=== PATIENT | female | born 1995 | race Two or more races ===

== ENCOUNTER 2024-02-14 01:44 | Inpatient (IN) | payer MEDICAID ==
[2024-02-14] VITALS (21 sets, daily range): BP systolic 52–148; BP diastolic 50–84; PULSE 84–134; RESP 16–23; TEMP 97.7–99.3; O2SAT 95–98
[2024-02-14] MEDS ORDERED: OXYTOCIN 10UNIT/ML 1ML VIAL ONE (01:52)
[2024-02-14] MEDS ORDERED: METHYLERGONOVINE MALEATE 0.2 MG/ML AMP IM ONE (01:53)
[2024-02-14] MEDS ORDERED: LACT. RINGERS/OXYTOCIN 20UNITS 1,000 ML IV ONE (01:53)
[2024-02-14] MEDS: TRANEXAMIC ACID 1,000 MG in SODIUM CHL 0.9% 100 ML IV ONE ×2 (01:57→03:25)
[2024-02-14] MEDS: LACTATED RINGER'S 1,000 ML IV SCH (02:00)
[2024-02-14] MEDS: ONDANSETRON HCL 4 MG/2 ML VIAL ONE (02:03)
[2024-02-14] MEDS ORDERED: CARBOPROST TROMETHAMINE 250 MCG/1ML VIAL IM PRN (02:15)
[2024-02-14] MEDS ORDERED: WITCH HAZEL-GLYCERIN PAD TOP PRN (02:15)
[2024-02-14] MEDS ORDERED: LIDOCAINE 2%HCL (LOCAL ANESTH.) INJ 20ML MDV IJ PRN (02:15)
[2024-02-14] MEDS: OXYTOCIN 10UNIT/ML 1ML VIAL IM ONE (02:17)
[2024-02-14] MEDS: LACT. RINGERS/OXYTOCIN 20UNITS 1,000 ML IV ONE (02:19)
[2024-02-14] MEDS: miSOPROStol 100 mcg TAB SL PRN (02:21)
[2024-02-14] MEDS: ONDANSETRON HCL 4 MG/2 ML VIAL IV PRN (02:23)
[2024-02-14] MEDS: miSOPROStol 100 mcg TAB PR PRN (02:26)
[2024-02-14] MEDS: DIPHENOXYLATE W/ATROPINE 2.5 MG TAB ONE (02:35)
[2024-02-14] MEDS: CARBOPROST TROMETHAMINE 250 MCG/1ML VIAL IM ONE ×2 (02:36)
[2024-02-14 02:39] LABS: Urine Bacteria None Seen /hpf (None Seen)
[2024-02-14] MEDS: fentaNYL CITRATE 100 MCG/2 ML VL ONE (02:41)
[2024-02-14 02:54] LABS: Basophils # (auto) 0 10 ^3/uL (0-0.2); Basophils % (auto) 0.3 % (0.0-2.0); Eosinophils # (auto) 0 10 ^3/uL (0-0.8); Eosinophils % (auto) 0.2 % (0.0-7.0); Hematocrit 33.9 % (36.0-46.0); Hemoglobin 11.2 g/dL (12.2-16.2); Lymphocytes # (auto) 1.2 10 ^3/uL (0.4-5.4); Lymphocytes % (auto) 10.6 % (10.0-50.0); Mean Corpuscular Hemoglobin 30.4 pg (28.0-32.0); Mean Corpuscular Hgb Conc. 33.1 g/dL (32.0-36.0); Mean Corpuscular Volume 91.8 fL (80.0-100.0); Monocytes # (auto) 0.6 10 ^3/uL (0-1.3); Monocytes % (auto) 5.4 % (0.0-12.0); Neutrophils # (auto) 9.8 10 ^3/uL (1.6-8.6); Neutrophils % (auto) 83.5 % (37.0-80.0); Nucleated Red Blood Cells % 0.1 %; Red Blood Cells 3.69 10^6/uL (4.0-5.20); Red Cell Distribution Width 14.9 % (11.8-14.3); White Blood Cell 11.8 10^3/uL (4.4-10.8)
[2024-02-14 02:57] LABS: Amphetamine Screen, Urine Neg (NEGATIVE); Barbiturate Scree,Urine Neg (NEGATIVE); Benzodiazephine Screen, Urine Neg (NEGATIVE); Cannabinoid Screen, Urine Neg (NEGATIVE); Cocaine Screen, Urine Neg (NEGATIVE); Opiate Scree,Urine Neg (NEGATIVE); Phencyclidine Screen, Urine Neg (NEGATIVE)
[2024-02-14 03:00] LABS: Protein, Urine 218.1 mg/dL (0.0-11.9); Urine Blood 2+ /uL (Negative); Urine Clarity Clear (Clear); Urine Color Light-Yellow (Yellow); Urine Protein, UAD 2+ (Negative); Urine Specific Gravity 1.017 (1.001-1.035); Urine Urobilinogen Normal (Negative); Urine WBC 2 /hpf (0 - 5); Urine pH 6.5 (5.0-9.0)
[2024-02-14 03:03] LABS: Creatinine, Urine 117.67 mg/dL (30.0-125.0); Urine Protein/Creatinine Ratio 1.85
[2024-02-14 03:09] LABS: INR 1.01 (0.9-1.15); Partial Thromboplastin Time 26.5 SEC (24.5-34.5); Prothrombin Time 10.7 sec (9.3-11.8)
[2024-02-14] MEDS: CARBOPROST TROMETHAMINE 250 MCG/1ML VIAL IM PRN (03:09)
[2024-02-14 03:12] LABS: Albumin 3.4 g/dL (3.2-4.8); Alkaline Phosphatase 195 U/L (46-116); Anion Gap 10 (5-15); Aspartate Aminotransferase 12 U/L (13-40); BUN/Creatinine Ratio 10.8 (10.0-20.0); Blood Urea Nitrogen 10 mg/dL (9-23); Calcium 9.6 mg/dL (8.7-10.4); Carbon Dioxide 19 mmol/L (20-30); Chloride 108 mmol/L (98-107); Glucose 117 mg/dL (74-106); Potassium 3.9 mmol/L (3.5-5.1); Sodium 137 mmol/L (136-145)
[2024-02-14 03:13] LABS: Bilirubin, Total 0.3 mg/dL (0.2-1.0); Total Protein 5.8 g/dL (5.7-8.2)
[2024-02-14 03:19] LABS: Alanine Aminotransferase < 9 U/L (7-40)
[2024-02-14] MEDS: LACT. RINGERS/OXYTOCIN 20UNITS 500 ML IV ONE (03:20)
[2024-02-14] MEDS: PHISODERM TOP SOLN 240ML BTL TOP PRN (05:04)
[2024-02-14] MEDS: DERMOPLAST 60ML BOTTLE TOP PRN (05:04)
[2024-02-14] MEDS: ceFAZolin 2 GM/D5W50ml 50 ML IV SCH (05:05)
[2024-02-14] MEDS: POTASSIUM CHL 20 Meq TABLET PO ONE (05:10)
[2024-02-14] MEDS: FUROSEMIDE 20 MG/2 ML VIAL IV ONE (05:32)
[2024-02-14 06:50] LABS: Basophils # (auto) 0 10 ^3/uL (0-0.2); Basophils % (auto) 0.2 % (0.0-2.0); Eosinophils # (auto) 0 10 ^3/uL (0-0.8); Hematocrit 42.9 % (36.0-46.0); Hemoglobin 14.1 g/dL (12.2-16.2); Lymphocytes # (auto) 0.8 10 ^3/uL (0.4-5.4); Lymphocytes % (auto) 4.1 % (10.0-50.0); Mean Corpuscular Hgb Conc. 32.8 g/dL (32.0-36.0); Mean Corpuscular Volume 91.5 fL (80.0-100.0); Monocytes # (auto) 0.8 10 ^3/uL (0-1.3); Monocytes % (auto) 4.1 % (0.0-12.0); Neutrophils % (auto) 91.6 % (37.0-80.0); Nucleated Red Blood Cells % 0.1 %; Red Blood Cells 4.69 10^6/uL (4.0-5.20); Red Cell Distribution Width 14.4 % (11.8-14.3); White Blood Cell 18.6 10^3/uL (4.4-10.8)
[2024-02-14] MEDS: IBUPROFEN 600 MG TAB PO PRN (06:51)
[2024-02-14] MEDS: MAGNESIUM SULFATE 100 ML IV ONE (08:05)
[2024-02-14] MEDS: MAGNESIUM SULFATE 40MG/ML 1,000 ML IV SCH (08:35)
[2024-02-14] MEDS: DIPHENOXYLATE W/ATROPINE 2.5 MG TAB PO SCH (09:47)
[2024-02-14 18:37] LABS: Basophils # (auto) 0 10 ^3/uL (0-0.2); Basophils % (auto) 0.1 % (0.0-2.0); Eosinophils # (auto) 0 10 ^3/uL (0-0.8); Hematocrit 33.2 % (36.0-46.0); Hemoglobin 11.2 g/dL (12.2-16.2); Lymphocytes # (auto) 1.8 10 ^3/uL (0.4-5.4); Lymphocytes % (auto) 11.5 % (10.0-50.0); Mean Corpuscular Hemoglobin 30.4 pg (28.0-32.0); Mean Corpuscular Hgb Conc. 33.9 g/dL (32.0-36.0); Mean Corpuscular Volume 89.9 fL (80.0-100.0); Monocytes # (auto) 1.5 10 ^3/uL (0-1.3); Monocytes % (auto) 9.9 % (0.0-12.0); Neutrophils # (auto) 12.2 10 ^3/uL (1.6-8.6); Neutrophils % (auto) 78.5 % (37.0-80.0); Nucleated Red Blood Cells % 0.1 %; Red Blood Cells 3.69 10^6/uL (4.0-5.20); Red Cell Distribution Width 14.6 % (11.8-14.3); White Blood Cell 15.6 10^3/uL (4.4-10.8)
[2024-02-14] MEDS ORDERED: FER325T PO (21:36)
[2024-02-14] MEDS ORDERED: ASCO500T11 PO (21:36)
[2024-02-14] MEDS ORDERED: DOCU-265 PO (21:36)
[2024-02-14] MEDS ORDERED: PREN-96 PO (21:36)
[2024-02-14] MEDS ORDERED: IBU600T PO (21:36)
[2024-02-14] MEDS: DOCUSATE SOD 100 MG CAP PO SCH (21:47)
[2024-02-14] MEDS: ACETAMINOPHEN 325 MG TAB PO PRN (22:06)
[2024-02-15 02:57] VITALS: BP 110/68; PULSE 94; RESP 16; TEMP 98.2; O2SAT 96
[2024-02-15] MEDS: MEASLES, MUMPS & RUBELLA VAC(MMRII) 0.5ML SC ONE (06:30)
[2024-02-15 07:00] VITALS: BP 92/50; PULSE 90; RESP 16; TEMP 97.8; O2SAT 94
[2024-02-15 07:07] LABS: RPR Non Reactive (Non Reactive)
[2024-02-15 11:00] VITALS: BP 120/59; PULSE 87; RESP 18; TEMP 98; O2SAT 97
[2024-02-15] MEDS ORDERED: SERT25TA84 PO (14:02)
[2024-02-15 15:05] VITALS: BP 97/53; PULSE 92; RESP 20; TEMP 97.8; O2SAT 97
[2024-02-16 18:06] LABS: Treponema pallidum Ab (FTA-Ab) Non Reactive (Non Reactive)
== END 2024-02-15 15:50 | disposition home or self-care (01) | DRG 560 ==
LOC: LDRP 01:44 → OBSVTOIN 02:12
PROVIDERS: ADMIT Obstetrics & Gynecology; ATTEND Obstetrics & Gynecology
PROC: 10E0XZZ Delivery of Products of Conception, External Approach (ICD-10-PCS; principal; 2024-02-14)
PROC: 0UQMXZZ Repair Vulva, External Approach (ICD-10-PCS; 2024-02-14)
PROC: 30233N1 Transfusion of Nonautologous Red Blood Cells into Peripheral Vein, Percutaneous Approach (ICD-10-PCS; 2024-02-14)
DX: O24.420 Gestational diabetes mellitus in childbirth, diet controlled (principal); Z37.0 Single live birth; O14.94 Unspecified pre-eclampsia, complicating childbirth; O72.0 Third-stage hemorrhage; O99.345 Other mental disorders complicating the puerperium; O99.02 Anemia complicating childbirth; O70.0 First degree perineal laceration during delivery; D50.9 Iron deficiency anemia, unspecified; F53.0 Postpartum depression; Z3A.39 39 weeks gestation of pregnancy
CPT/HCPCS: 36415; 36430; 59025; 59409; 71045; 76856; 80053; 80307; 81001; 82570; 83735; 84156; 84550; 85025; 85610; 85730; 86592; 86850; 86900; 86901; 86920; 87340; 94760; 96360; 96361; 96365; 96366; 96372; 96374; 96375; G0378; J2405; J2590